=== PATIENT | male | born 1955 | race Hispanic/Latino ===

== ENCOUNTER 2018-09-22 07:37 | Day surgery (SDC) | payer OTHER ==
[~2018-09-22] VITALS: Ht 172.7 cm; Wt 86.6 kg
[~2018-09-22 07:37] MED LIST: ASPI1TAB PO; ASPI81TA3 OR; ATOR1TAB21 PO; JANU50TA25 PO; LISI-538 PO; LISI10TA4 OR; METF10004 PO; METF500T4 OR; OMEP20CA3 PO; OMEP20TA7 PO; TERB250T12 PO
[2018-09-22] MEDS ORDERED: PROPOFOL 200 MG/20 ML VIAL As Ordered ONE (07:48)
[2018-09-22] MEDS ORDERED: LIDOCAINE 2% INJ 100 MG/5 ML SDV (FOR ANES.) As Ordered ONE (07:48)
[2018-09-22] MEDS ORDERED: fentaNYL 100 MCG/2 ML INJECTION (J3010) As Ordered ONE (08:13)
[2018-09-22] MEDS ORDERED: NS 1,000 ML IV ONE (08:15)
[2018-09-22] MEDS ORDERED: fentaNYL 100 MCG/2 ML INJECTION (J3010) IV ONE (08:15)
--- NOTE | 2018-09-22 08:51 | ROOR ---
Patient Name: Charlie Craven Procedure Date: 09/22/2018 8:34 AM Date of : 1955 Age: 63 Room: [facility] Gender: Male Note Status: Finalized Procedure: Upper GI endoscopy Indications: Heartburn Providers: Kameron SAEZ MD Referring MD: JOSY FERRIS MD Requesting Provider: Medicines: Monitored Anesthesia Care Complications: No immediate complications. Procedure: Pre-Anesthesia Assessment: - The heart rate, respiratory rate, oxygen saturations, blood pressure, adequacy of pulmonary ventilation, and response to care were monitored throughout the procedure. The Endoscope was introduced through the mouth, and advanced to the second part of duodenum. The upper GI endoscopy was accomplished without difficulty. The patient tolerated the procedure well. Findings: Non-severe esophagitis with no bleeding was found at the gastroesophageal junction. Biopsies were taken with a cold forceps for histology. The exam of the esophagus was otherwise normal. Minimal inflammation was found in the entire examined stomach. Biopsies were taken with a cold forceps for histology. Small Hiatal Hernia. The exam of the stomach was otherwise normal. The examined duodenum was normal. Impression: - Mild reflux esophagitis. Biopsied. - Minimal gastritis. Biopsied. - Small hiatal hernia. - The examination is otherwise normal. Recommendation: - Continue present medications. - Await pathology results. - Telephone endoscopist for pathology results in 2 weeks. Kameron Saez MD Kameron ASEZ MD 09/22/2018 8:51:04 AM This report has been signed electronically. Number of Addenda: 0 Note Initiated On: 09/22/2018 8:34 AM Estimated Blood Loss: Estimated blood loss: none.
[2018-09-22] MEDS ORDERED: MIDAZOLAM INJ 2 MG/2 ML VIAL (J2250) IV ONE (09:00)
--- NOTE | 2018-09-22 09:06 | ROOR ---
Patient Name: Charlie Craven Procedure Date: 09/22/2018 8:33 AM Date of : 1955 Age: 63 Room: [facility] Gender: Male Note Status: Finalized Procedure: Colonoscopy Indications: Screening for colorectal malignant neoplasm Providers: Kameron SAEZ MD Referring MD: JOSY FERRIS MD Requesting Provider: Medicines: Monitored Anesthesia Care Complications: No immediate complications. Procedure: Pre-Anesthesia Assessment: - The heart rate, respiratory rate, oxygen saturations, blood pressure, adequacy of pulmonary ventilation, and response to care were monitored throughout the procedure. The Colonoscope was introduced through the anus and advanced to the terminal ileum, with identification of the appendiceal orifice and IC valve. The colonoscopy was performed without difficulty. The patient tolerated the procedure well. The quality of the bowel preparation was good. Findings: The perianal and digital rectal examinations were normal. Three sessile polyps were found in the descending colon and splenic flexure. The polyps were 4 to 5 mm in size. These polyps were removed with a cold snare. Resection and retrieval were complete. Internal hemorrhoids were found during retroflexion. The hemorrhoids were moderate. Impression: - Three 4 to 5 mm polyps in the descending colon and at the splenic flexure, removed with a cold snare. Resected and retrieved. - Internal hemorrhoids. - Otherwise normal to cecum/terminal ileum. Recommendation: - Repeat colonoscopy in 5 years for surveillance. Kameron Saez MD Kameron SAEZ MD 09/22/2018 9:06:18 AM This report has been signed electronically. Number of Addenda: 0 Note Initiated On: 09/22/2018 8:33 AM Estimated Blood Loss: Estimated blood loss: none.
[2018-09-22 09:26] VITALS: BP 128/82
== END 2018-09-22 09:29 | disposition home or self-care (01) ==
LOC: M OPP 07:37
PROVIDERS: ATTEND Internal Medicine Gastroenterology
DX: Z12.11 Encounter for screening for malignant neoplasm of colon (principal); D12.4 Benign neoplasm of descending colon; D12.3 Benign neoplasm of transverse colon; K64.8 Other hemorrhoids; K44.9 Diaphragmatic hernia without obstruction or gangrene; K21.0 Gastro-esophageal reflux disease with esophagitis; K29.70 Gastritis, unspecified, without bleeding; R12 Heartburn; Z79.82 Long term (current) use of aspirin; Z79.84 Long term (current) use of oral hypoglycemic drugs; Z79.899 Other long term (current) drug therapy
CPT/HCPCS: 43239; 45385; 88305; J3010

== ENCOUNTER → 2023-08-28 | Outpatient (CLI) | payer MEDICARE, OTHER ==
[~2023-08-28] MED LIST changes: -ASPI1TAB PO; +ASPI81TA26 PO; -LISI-538 PO; +LISI20TA33 PO; +OMEP1CAP73 PO; -OMEP20CA3 PO; -TERB250T12 PO; +TERB250T91 PO
== END ==
LOC: M RAD 09:09
PROVIDERS: ATTEND Internal Medicine Nephrology
DX: N18.32 Chronic kidney disease, stage 3b (principal); N28.1 Cyst of kidney, acquired

== ENCOUNTER 2024-02-02 07:29 | Day surgery (SDC) | payer MEDICARE, OTHER ==
[~2024-02-02] VITALS: Ht 172.7 cm; Wt 72.8 kg
[~2024-02-02 07:29] MED LIST changes: +ATOR1TAB19 PO; +IRBE150T27 PO; +JANU50TA22 PO; +JARD1TAB3 PO; +VITA100093 PO
[2024-02-02] MEDS: NS 1,000 ML IV ONE (08:17)
[2024-02-02] MEDS ORDERED: propofoL 200 MG/20 ML VIAL As Ordered ONE (09:20)
[2024-02-02 10:06] VITALS: TEMP 99
[2024-02-02 10:25] VITALS: BP 104/67; O2SAT 96
== END 2024-02-02 10:32 | disposition home or self-care (01) ==
LOC: M OPP 07:29
PROVIDERS: ATTEND Internal Medicine Gastroenterology
DX: Z12.11 Encounter for screening for malignant neoplasm of colon (principal); K57.30 Diverticulosis of large intestine without perforation or abscess without bleeding; K64.8 Other hemorrhoids; Z86.010 Personal history of colon polyps; Z87.19 Personal history of other diseases of the digestive system; I10 Essential (primary) hypertension; K21.9 Gastro-esophageal reflux disease without esophagitis; E78.00 Pure hypercholesterolemia, unspecified; E11.9 Type 2 diabetes mellitus without complications; Z79.899 Other long term (current) drug therapy; Z79.84 Long term (current) use of oral hypoglycemic drugs; Z90.89 Acquired absence of other organs